=== PATIENT | male | born 1945 | race Caucasian/White ===

== ENCOUNTER 2017-03-30 15:30 | Emergency (ER) | payer MEDICARE ==
[2017-03-30 15:38] VITALS: BP 162/75
[2017-03-30] MEDS ORDERED: DEXAMETHASONE 10 MG/ML VIAL PO STA (15:58)
--- NOTE | 2017-03-30 16:01 | ED Physician Documentation ---
History of Present Illness - Stated complaint Stated Complaint: BEE STING - Chief complaint Chief Complaint: Allergic Rx - History obtained from History obtained from: Patient - History of Present Illness Timing: Yesterday - Additonal information Additional information: 71-year-old male was stung in the right hand by a bee. He has increased swelling and erythema today. He is having some mild pain with distention of the skin. He has had reactions to bees previously and has had bee stings cellulitis previously as well. He is not having fever today he does not feel weak and does not feel any difficulty breathing.He has been taking some Benadryl. Review of Systems Constitutional: denies: Fever Nose: denies: Congestion Throat: denies: Sore throat Cardiac: denies: Chest pain / pressure Respiratory: denies: Cough GI: denies: Abdominal Pain, Nausea, Vomiting Skin: reports: Bite / sting Musculoskeletal: reports: Extremity pain, Extremity swelling Neurologic: denies: Generalized weakness, Focal weakness, Numbness PD PAST MEDICAL HISTORY - Past Medical History Past Medical History: Yes Cardiovascular: Hypertension, High cholesterol - Past Surgical History Past Surgical History: Yes General: Colonoscopy Ortho: ACL reconstruction - Present Medications Home Medications: Ambulatory Orders Medication Instructions Recorded Confirmed Lovastatin [Mevacor] 10 mg PO DAILY 05/26/13 03/30/17 Acetaminophen [Tylenol Extra 500 mg PO BID 03/30/17 03/30/17 Strength] Amox/Clav 875/125 [Augmentin] 1 each PO Q12H #14 tablet 03/30/17 Aspirin 81 mg PO DAILY 03/30/17 03/30/17 Fexofenadine HCl 180 mg PO DAILY PRN 03/30/17 03/30/17 Lisinopril [Zestril] 30 mg PO DAILY 03/30/17 03/30/17 Melatonin/Pyridoxine [Melatonin 5 5 mg PO DAILY PRN 03/30/17 03/30/17 mg Tablet] Multivit-Min/FA/Lycopen/Lutein 1 tab PO DAILY 03/30/17 03/30/17 [Centrum Silver Men Tablet] traZODone [Desyrel] 25 mg PO DAILY PM 03/30/17 03/30/17 - Allergies Allergies/Adverse Reactions: Allergies Allergy/AdvReac Type Severity Reaction Status Date / Time No Known Drug Allergies Allergy Verified 05/26/13 13:45 - Social History Does the pt smoke?: No Smoking Status: Never smoker Does the pt drink ETOH?: Yes Does the pt have substance abuse?: No - Immunizations Immunizations are current?: Yes PD ED PE NORMAL - Vitals Vital signs reviewed: Yes (Hypertensive) - General General: No acute distress, Well developed/nourished - HEENT HEENT: Atraumatic (Hypertensive), PERRL - Respiratory Respiratory: No respiratory distress - Derm Derm: Normal color, Warm and dry, No rash - Extremities Extremities: No deformity, Other (There is marked swelling of the dorsum of the right hand with erythema there is some superficial erythema to the forearm of the volar surface concerning for extension of the reaction. There is no significant tenderness to the forearm. Distal neurovascular components are intact.) Results - Vitals Vitals: Vital Signs - 24 hr 03/30/17 15:35 Temperature 36.7 C Heart Rate 66 Respiratory 14 Rate Blood Pressure 162/75 H O2 Saturation 96 Oxygen O2 Source Room air PD MEDICAL DECISION MAKING - ED course Complexity details: reviewed old records, considered differential ED course: 71-year-old male with a bee sting to the right hand has had local reaction and appears to have infection as well. Here in the emergency department he is given 10 mg of dexamethasone and we will place him on some Augmentin orally as a follow-up. Departure - Departure Disposition: 01 Home, Self Care Clinical Impression: Cellulitis of right hand Local reaction to bee sting Qualifiers: Encounter type: initial encounter Injury intent: accidental or unintentional Qualified Code(s): T63.441A - Toxic effect of venom of bees, accidental ( unintentional), initial encounter Condition: Stable Instructions: ED Allergic Reaction Local Other, ED Infec Skin Cellulitis Follow-Up: Zoe Vincent ARNP [Primary Care Provider] - Prescriptions: Amox/Clav 875/125 [Augmentin] 1 each PO Q12H #14 tablet
[2017-03-30] MEDS ORDERED: DEXAMETHASONE 10 MG/ML VIAL ONE (16:26)
[2017-03-30] MEDS ORDERED: CHERRY SYRUP 10 ML UDC PO ONE (16:26)
== END 2017-03-30 16:26 | disposition home or self-care (01) ==
LOC: ED 15:30
DX: T63.441A Toxic effect of venom of bees, accidental (unintentional), initial encounter (principal); L03.113 Cellulitis of right upper limb; I10 Essential (primary) hypertension
CPT/HCPCS: 99283; A9270

== ENCOUNTER 2018-07-31 09:40 | Day surgery (SDC) | payer MEDICARE ==
[2018-07-31] MEDS ORDERED: LACTATED RINGERS 1,000 ML IV ONE (10:29)
[2018-07-31] MEDS ORDERED: fentaNYL 250 MCG/5 ML VIAL IVP ONE (11:13)
[2018-07-31] MEDS ORDERED: MIDAZOLAM 2 MG/2 ML VIAL IVP ONE (11:13)
[2018-07-31 11:50] VITALS: BP 116/54
== END 2018-07-31 09:41 | disposition home or self-care (01) ==
LOC: SDS 09:40
PROVIDERS: ATTEND Internal Medicine Gastroenterology
PROC: 0DBM8ZZ Excision of Descending Colon, Via Natural or Artificial Opening Endoscopic (ICD-10-PCS; 2018-07-31)
PROC: 0DBM8ZZ Excision of Descending Colon, Via Natural or Artificial Opening Endoscopic (ICD-10-PCS; 2018-07-31)
PROC: 3E0H8GC Introduction of Other Therapeutic Substance into Lower GI, Via Natural or Artificial Opening Endoscopic (ICD-10-PCS; 2018-07-31)
PROC: 0DBH8ZZ Excision of Cecum, Via Natural or Artificial Opening Endoscopic (ICD-10-PCS; principal; 2018-07-31 11:00)
DX: Z12.11 Encounter for screening for malignant neoplasm of colon (principal); D12.0 Benign neoplasm of cecum; D12.4 Benign neoplasm of descending colon; I10 Essential (primary) hypertension; E78.5 Hyperlipidemia, unspecified; K21.9 Gastro-esophageal reflux disease without esophagitis; Z87.891 Personal history of nicotine dependence; G47.33 Obstructive sleep apnea (adult) (pediatric); I44.0 Atrioventricular block, first degree
CPT/HCPCS: 45380; 45381; 45385; J3010; J7120

== ENCOUNTER 2019-07-09 09:58 | Outpatient (CLI) | payer MEDICARE | END 2019-07-09 09:59 | disposition home or self-care (01) | LOC: LAB.S 09:58 | PROVIDERS: ATTEND Registered Nurse | DX: E83.52 Hypercalcemia (principal) | CPT/HCPCS: 36415; 81599; 82306; 82310; 82330; 83970 ==

== ENCOUNTER 2021-01-04 08:19 | Outpatient (CLI) | payer MEDICARE | END 2021-01-04 08:20 | disposition E | LOC: EMS 08:19 ==